=== PATIENT | male | born 1965 | race Caucasian/White ===

== ENCOUNTER → 2016-08-26 | Outpatient (CLI) | payer MEDICAID ==
[~2016-08-26] MED LIST: ACYC-114 PO; AMLO10TA2 PO; ASPI-515 PO; CHEMO MEDICATION; DEXA4TAB PO; HYDR-3240 PO; LENA25CA PO; LORA1TAB PO; OXYC10TA32 PO; OXYC5CAP4 PO; OXYC5TAB3 PO; PIRO20CA PO
== END | disposition home or self-care (01) ==
LOC: RAD 11:40
PROVIDERS: ATTEND Internal Medicine Hematology & Oncology
DX: Z51.11 Encounter for antineoplastic chemotherapy (principal); C90.00 Multiple myeloma not having achieved remission; N52.9 Male erectile dysfunction, unspecified; M54.5 Low back pain; G89.3 Neoplasm related pain (acute) (chronic)

== ENCOUNTER 2016-09-10 11:18 | Day surgery (SDC) | payer MEDICAID ==
[~2016-09-10] VITALS: Ht 165.1 cm; Wt 100.0 kg
[~2016-09-10 11:18] MED LIST changes: +FAMO20TA7 PO; +MORP15TA3 PO
[2016-09-10 11:57] VITALS: BP 142/87
[2016-09-10] MEDS ORDERED: LACTATED RINGERS 1,000 ML IV SCH (12:01)
[2016-09-10] MEDS ORDERED: MIDAZOLAM 1 MG/ML, 2ML ONE (14:09)
[2016-09-10] MEDS ORDERED: FENTANYL PF 250 MCG/5ML ONE (14:09)
[2016-09-10] MEDS ORDERED: ROPIvacaine/PF 0.2%, 20 ML ONE (14:22)
[2016-09-10] MEDS ORDERED: CEFAZOLIN 1,000 MG ONE (14:50)
[2016-09-10] MEDS ORDERED: KETOROLAC 30 MG/1 ML ONE (14:50)
[2016-09-10] MEDS ORDERED: PROPOFOL 10 MG/ML, 20ML ONE (14:50)
[2016-09-10] MEDS ORDERED: ONDANSETRON 2MG/ML, 2ML ONE (14:50)
[2016-09-10] MEDS ORDERED: DEXAMETHASONE 4 MG/ML, 1ML ONE (14:50)
[2016-09-10] MEDS ORDERED: KETOROLAC 30 MG/1 ML IVPush SCH (16:00)
[2016-09-10] MEDS ORDERED: ONDANSETRON 2MG/ML, 2ML IVPush PRN ×2 (16:00)
[2016-09-10] MEDS ORDERED: PROMETHAZINE 25 MG/ML, 1ML IM PRN (16:00)
[2016-09-10] MEDS ORDERED: OXYcodone 5 MG/5 ML ORAL.SOL UDC PO PRN ×2 (16:00)
[2016-09-10] MEDS ORDERED: HYDROmorphone 1 MG/ML, 1ML IV PRN (16:00)
[2016-09-10] MEDS ORDERED: EPHEDRINE 50 MG/ML, 1ML IVPush PRN (16:00)
[2016-09-10] MEDS ORDERED: LABETALOL 5MG/ML, 20ML IV PRN (16:00)
[2016-09-10] MEDS ORDERED: morphine SULFATE 10 MG/ML, 1ML IVPush PRN (16:00)
[2016-09-10] MEDS ORDERED: MEPERIDINE/PF 25MG/0.5ML IVPush PRN (16:00)
[2016-09-10] MEDS ORDERED: METOPROLOL 1 MG/ML, 5ML IV PRN (16:00)
[2016-09-10] MEDS ORDERED: MIDAZOLAM 1 MG/ML, 2ML IV PRN (16:00)
[2016-09-10] MEDS ORDERED: hydrALAzine 20 MG/ML, 1ML IV PRN (16:00)
[2016-09-10] MEDS ORDERED: PROMETHAZINE 25 MG/ML, 1ML IV PRN (16:00)
[2016-09-10] MEDS ORDERED: FENTANYL PF 100 MCG/2ML IV PRN (16:00)
[2016-09-10] MEDS ORDERED: ACETAMINOPHEN 325 MG TABLET PO PRN ×2 (16:00)
[2016-09-10] MEDS ORDERED: ALBUTEROL SULFATE 2.5 MG/3 ML NPPB PRN (16:00)
[2016-09-10] MEDS ORDERED: ACETAMINOPHEN 650 MG/20.3 ML UDC ONE (16:35)
[2016-09-10] MEDS ORDERED: OXYcodone 5 MG/5 ML ORAL.SOL UDC ONE (16:35)
== END 2016-09-10 18:10 | disposition home or self-care (01) ==
LOC: OUT 11:18
PROVIDERS: ATTEND Orthopaedic Surgery
DX: M84.421A Pathological fracture, right humerus, initial encounter for fracture (principal); I10 Essential (primary) hypertension; Z85.79 Personal history of other malignant neoplasms of lymphoid, hematopoietic and related tissues; Z82.3 Family history of stroke
CPT/HCPCS: 24498; 73060; 76000; 88307; 88311; J0690; J1100; J1885; J2250; J2405; J2704; J2795; J3010; J7120; C1713

== ENCOUNTER 2016-10-02 12:45 | Day surgery (SDC) | payer MEDICAID ==
[~2016-10-02] VITALS: Ht 165.1 cm; Wt 97.0 kg
[2016-10-02 13:27] VITALS: BP 130/80
[2016-10-02] MEDS ORDERED: LIDOCAINE 1%, 20ML ONE (14:29)
== END 2016-10-02 17:08 | disposition home or self-care (01) ==
LOC: RAD 12:45
PROVIDERS: ATTEND Internal Medicine Hematology & Oncology
DX: C90.00 Multiple myeloma not having achieved remission (principal); I10 Essential (primary) hypertension
CPT/HCPCS: 38221; 77012; 85097; 88237; 88264; 88280; 88305; 88311; 88341; 88342; 88360; 99156; 99157; G0364; J2250; J3490; 85025; 88313; G0461

== ENCOUNTER → 2016-12-02 | Outpatient (CLI) | payer MEDICAID | END | disposition home or self-care (01) | LOC: CFH 07:38 | PROVIDERS: ATTEND Internal Medicine Hematology & Oncology | DX: I08.3 Combined rheumatic disorders of mitral, aortic and tricuspid valves (principal); C90.00 Multiple myeloma not having achieved remission | CPT/HCPCS: 93306 ==